=== PATIENT | female | born 1960 | race Caucasian/White ===

== ENCOUNTER 2020-05-05 08:47 | Day surgery (SDC) | payer MEDICARE, MEDICAID ==
[2020-05-03 14:43] LABS: BASOPHILS % (AUTO) 0.5 % (0-1); EOSINOPHILS # (AUTO) 0.2 X10'3 (0-0.9); EOSINOPHILS % (AUTO) 1.9 % (0-6); LYMPHOCYTES # (AUTO) 0.8 X10'3 (1.1-4.8); LYMPHOCYTES % (AUTO) 8.5 % (21-51); MEAN CORPUSCULAR HEMOGLOBIN 28.1 PG (27.0-31.0); MEAN CORPUSCULAR VOLUME 87.7 FL (78-98); MEAN PLATELET VOLUME 7.2 FL (7.4-10.4); MONOCYTES # (AUTO) 0.7 X10'3 (0-0.9); MONOCYTES % (AUTO) 7.1 % (2-12); NEUTROPHILS # (AUTO) 7.7 X10'3 (1.8-7.7); PRE OP HEMATOCRIT 33.5 % (35.0-45.0); PRE OP PLATELET COUNT 547 X10'3 (140-440); RED BLOOD COUNT 3.82 X10'6 (4.20-5.60); RED CELL DISTRIBUTION WIDTH 19.9 % (11.5-14.5)
[2020-05-03 14:49] LABS: PRE OP HEMOGLOBIN 10.7 g/dL (12.0-16.0)
[2020-05-03 14:54] LABS: CLARITY,URINE CLOUDY (Clear); COLOR,URINE YELLOW (Yellow); GLUCOSE, URINE NEGATIVE (Neg); KETONES,URINE NEGATIVE (Neg); LEUKOCYTE ESTERASE ,URINE SMALL (Neg); NITRITES, URINE NEGATIVE (Neg); OCCULT BLOOD,URINE TRACE-INTACT (Neg); PROTEIN,URINE TRACE mg/dl (Neg); UROBILINOGEN,URINE 0.2 E.U/dL (0.2-1.0)
[2020-05-03 14:57] LABS: PRE OP PROTIME 10.4 SECONDS (9.0-12.0)
[2020-05-03 15:01] LABS: ALBUMIN 2.6 G/DL (3.4-5.0); ALBUMIN/GLOBULIN RATIO 0.5 (1.1-1.5); ALKALINE PHOSPHATASE 154 IU/L (46-116); BLOOD UREA NITROGEN 18 MG/DL (7-18); BUN/CREATININE RATIO 16.4 (6.6-38.0); CALCIUM 8.5 MG/DL (8.5-10.1); CHLORIDE 104 MMOL/L (99-107); PRE OP ALT 10 U/L (30-65); PRE OP ANION GAP 7 (8-16); PRE OP AST 11 U/L (10-37); PRE OP BILIRUB, TOTAL 0.2 MG/DL (0.0-1.0); PRE OP GLUCOSE 95 MG/DL (70-104); PRE OP POTASSIUM 3.6 MMOL/L (3.4-5.1); PRE OP SODIUM 140 MMOL/L (135-145); TOTAL CARBON DIOXIDE 28.8 MMOL/L (24-32); TOTAL PROTEIN 7.5 G/DL (6.4-8.2); eGFR 51 ML/MIN
[2020-05-03 15:05] LABS: UA COLLECTION TYPE CLN CATCH MIDSTREAM
[2020-05-03 15:06] LABS: WBC,URINE 20-30 /HPF (0-4)
[2020-05-03 15:07] LABS: BACTERIA,URINE 1+ /HPF (Neg); SQUAMOUS EPITHELIAL CELL,UR FEW /LPF (FEW)
[2020-05-03 15:41] LABS: ANISOCYTOSIS 2+; PLATELET ESTIMATE INCREASED
[2020-05-03 15:42] LABS: HYPOCHROMASIA 1+
[~2020-05-05] VITALS: Ht 167.6 cm; Wt 63.5 kg
[2020-05-05] VITALS (12 sets, daily range): BP systolic 101–123; BP diastolic 52–69
[~2020-05-05 08:47] MED LIST: ALBU6.7H9 INH; AMIT25TA19 PO; AMLO5TAB16 PO; ATOM80CA PO; ATOR20TA66 PO; AZAT50TA18 PO; CARV-50 PO; CITA40TA22 PO; DOCUMENT DATE & TIME OF BETA-BLOCKER PO ONE; FAMO-128 PO; FLO0.1T PO; LEVO100T9 PO; LISI-600 PO; TRAZ-251 PO; USTE90DI SQ; VANCOMYCIN INJ 1000 MG in NORMAL SALINE 250ml IV.SOLN IV ONE; [UNRECOGNIZED DRUG - REMARK] PO; ceFAZolin 2gm in dextrose, iso 50 ML IV ONE; famotidine 20mg tablet PO ONE; ringers solution, lacted 1,000 ML IV SCH
[2020-05-05] MEDS ORDERED: bacitracin 15gm ointment TP ONE (08:54)
[2020-05-05] MEDS ORDERED: BUPIVAcaine/PF 2.5 mg/ml (0.25%) 30ml vial ONE (08:55)
[2020-05-05] MEDS ORDERED: sevoflurane 250ml liquid IH ONE (09:37)
[2020-05-05] MEDS ORDERED: midazolam 2 mg/2 ml injection ONE (09:44)
[2020-05-05] MEDS ORDERED: fentaNYL/PF 50MCG/1 ML 2ML syringe ONE (09:44)
[2020-05-05] MEDS ORDERED: albumin (Human) 5% 250ml 250 ML IV ONE ×3 (11:01→11:15)
[2020-05-05] MEDS ORDERED: phenylephrine 10mg/ml inj. ONE ×2 (11:09)
[2020-05-05] MEDS ORDERED: ePHEDrine 50MG/ML INJ. ONE (11:09)
--- NOTE | 2020-05-05 11:22 | NUR ---
RECEIVED FROM OR VIA [facility] ACCOMPANIED BY ANESTHESIOLOGIST DR JAMES, REPORT GIVEN. PT DROWSY BUT AWAKENS WITH NO COMPLAINT OF PAIN. 20 GAUGE PIV R FA PATENT AND RUNNING LR AT 100 ML/HR. R LE DRESSING AND SPLINT CDI. BRISK CAP REFILL, SKIN PINK AND WARM, VSS, ABD SOFT, EXTREMITY ELEVATED AND ICE APPLIED. PT RESTING COMFORTABLY.
--- NOTE | 2020-05-05 13:11 | NUR ---
PT AWAKE AND ALERT WITH NO COMPLAINT OF PAIN. 20 GAUGE PIV R FA DC/D CATH TIP INTACT. R LE DRESSING AND SPLINT CDI. BRISK CAP REFILL, SKIN PINK AND WARM, VSS, ABD SOFT. TOLERATING FLUIDS, ABLE TO DRESS SELF, AMBULATE WITH CRUTCHES, AND VOID. DISCHARGE INSTRUCTIONS GIVEN AND PT VERBALIZED UNDERSTANDING. TRANSPORTED VIA WHEELCHAIR TO SON IN PRIVATE VEHICLE TO HOME.
== END 2020-05-05 13:11 | disposition home or self-care (01) ==
LOC: PAS 08:47
PROVIDERS: ATTEND Podiatrist Foot & Ankle Surgery
DX: S92.311A Displaced fracture of first metatarsal bone, right foot, initial encounter for closed fracture (principal); F17.210 Nicotine dependence, cigarettes, uncomplicated; F41.9 Anxiety disorder, unspecified; F32.9 Major depressive disorder, single episode, unspecified; K21.9 Gastro-esophageal reflux disease without esophagitis; G89.18 Other acute postprocedural pain; M19.90 Unspecified osteoarthritis, unspecified site; Z88.8 Allergy status to other drugs, medicaments and biological substances; Z98.890 Other specified postprocedural states; Z72.89 Other problems related to lifestyle; Z93.3 Colostomy status; Z79.01 Long term (current) use of anticoagulants; Z86.73 Personal history of transient ischemic attack (TIA), and cerebral infarction without residual deficits; Z79.899 Other long term (current) drug therapy; Z95.0 Presence of cardiac pacemaker; X58.XXXA Exposure to other specified factors, initial encounter; Y93.89 Activity, other specified; Y92.89 Other specified places as the place of occurrence of the external cause; Y99.8 Other external cause status
CPT/HCPCS: 28485; 36415; 64445; 64447; 71046; 73620; 76000; 76942; 80053; 81001; 85025; 85610; 85730; 87077; 87088; 87186; 93005; A6223; C1713; J2250; J2370; J3010; J3370; J3490; J7120; P9045; 85008; A4215; A4618; A6253; A6449; A7000

== ENCOUNTER 2020-09-29 13:51 | Day surgery (SDC) | payer MEDICARE, MEDICAID ==
[2020-09-28 14:55] LABS: BASOPHILS # (AUTO) 0.1 X10'3 (0-0.2); BASOPHILS % (AUTO) 0.8 % (0-1); EOSINOPHILS # (AUTO) 0.2 X10'3 (0-0.9); EOSINOPHILS % (AUTO) 2.8 % (0-6); HEMATOCRIT 30.6 % (35.0-45.0); LYMPHOCYTES # (AUTO) 0.8 X10'3 (1.1-4.8); LYMPHOCYTES % (AUTO) 11.9 % (21-51); MEAN CORPUSCULAR HEMOGLOBIN 28.1 PG (27.0-31.0); MEAN CORPUSCULAR HGB CONC 32.8 g/dL (33.0-36.5); MEAN CORPUSCULAR VOLUME 85.5 FL (78-98); MEAN PLATELET VOLUME 7.1 FL (7.4-10.4); MONOCYTES # (AUTO) 0.6 X10'3 (0-0.9); MONOCYTES % (AUTO) 8.2 % (2-12); NEUTROPHILS # (AUTO) 5.4 X10'3 (1.8-7.7); NEUTROPHILS % (AUTO) 76.3 % (42-75); PLATELET COUNT 492 X10'3 (140-440); RED BLOOD COUNT 3.58 X10'6 (4.20-5.60); RED CELL DISTRIBUTION WIDTH 17.9 % (11.5-14.5)
[2020-09-28 15:02] LABS: ALBUMIN 2.5 G/DL (3.4-5.0); ANION GAP 3 (8-16); BLOOD UREA NITROGEN 21 MG/DL (7-18); BUN/CREATININE RATIO 17.5 (6.6-38.0); CALCIUM 7.9 MG/DL (8.5-10.1); CHLORIDE 105 MMOL/L (99-107); GLUCOSE 92 MG/DL (70-104); POTASSIUM 3.9 MMOL/L (3.5-5.1); SODIUM 140 MMOL/L (135-145); TOTAL CARBON DIOXIDE 31.9 MMOL/L (24-32); eGFR 46 ML/MIN
[2020-09-28 15:07] LABS: PARTIAL THROMBOPLASTIN TIME 24 SECONDS (22-32)
[2020-09-29] VITALS (9 sets, daily range): BP systolic 138–151; BP diastolic 72–84
[~2020-09-29] VITALS: Ht 167.6 cm; Wt 64.4 kg
[~2020-09-29 13:51] MED LIST changes: -DOCUMENT DATE & TIME OF BETA-BLOCKER PO ONE; -LISI-600 PO; +LISI20TA28 PO; -VANCOMYCIN INJ 1000 MG in NORMAL SALINE 250ml IV.SOLN IV ONE; -ceFAZolin 2gm in dextrose, iso 50 ML IV ONE; -famotidine 20mg tablet PO ONE; -ringers solution, lacted 1,000 ML IV SCH
[2020-09-29] MEDS ORDERED: OMEP-50 PO (14:43)
[2020-09-29] MEDS ORDERED: midazolam 2 mg/2 ml injection ONE ×2 (14:44→15:50)
[2020-09-29] MEDS ORDERED: LIDOcaine 1% W/epiNEPHrine 1:100,000 20ml vial ONE (14:44)
[2020-09-29] MEDS ORDERED: fentaNYL/PF 50MCG/1 ML 2ML syringe ONE ×2 (14:44→15:50)
[2020-09-29] MEDS ORDERED: ceFAZolin 1000mg inj ONE (14:44)
[2020-09-29] MEDS ORDERED: ALBU18HF2 INH (14:49)
[2020-09-29] MEDS ORDERED: ceFAZolin 2gm in dextrose, iso 50 ML IV ONE ×2 (15:04→15:05)
[2020-09-29] MEDS ORDERED: normal saline 1000ml 1,000 ML IV SCH (16:30)
[2020-09-29] MEDS ORDERED: HYDROcodone/acetaminophen 5mg/325mg tablet PO PRN (16:30)
[2020-09-29] MEDS ORDERED: HYDROcodone/acetaminophen 10/325mg tab PO PRN (16:30)
[2020-09-29] MEDS ORDERED: vancomycin/NS 1 GM ADD-VANTAGE 250 ML X 1 DOSE IV ONE (17:00)
== END 2020-09-29 19:20 | disposition home or self-care (01) ==
LOC: SSTAY O 13:51
PROVIDERS: ATTEND Internal Medicine Cardiovascular Disease
DX: Z45.02 Encounter for adjustment and management of automatic implantable cardiac defibrillator (principal); I25.10 Atherosclerotic heart disease of native coronary artery without angina pectoris; I42.9 Cardiomyopathy, unspecified; I50.9 Heart failure, unspecified; J44.9 Chronic obstructive pulmonary disease, unspecified; I47.1 Supraventricular tachycardia; Z72.0 Tobacco use
CPT/HCPCS: 33264; 36415; 80048; 85025; 85610; 85730; 93005; 99152; 99153; C1882; J0690; J2250; J3010; J3370; A4620; C2621

== ENCOUNTER 2021-12-07 11:43 | Day surgery (SDC) | payer MEDICARE, MEDICAID ==
[2021-11-29 14:52] LABS: BASOPHILS % (AUTO) 0.7 % (0-1); EOSINOPHILS # (AUTO) 0.1 X10'3 (0-0.9); EOSINOPHILS % (AUTO) 3.1 % (0-6); LYMPHOCYTES # (AUTO) 0.6 X10'3 (1.1-4.8); LYMPHOCYTES % (AUTO) 11.6 % (21-51); MEAN CORPUSCULAR HEMOGLOBIN 23.6 PG (27.0-31.0); MEAN CORPUSCULAR HGB CONC 31.5 g/dL (33.0-36.5); MEAN CORPUSCULAR VOLUME 75.1 FL (78-98); MEAN PLATELET VOLUME 7.7 FL (7.4-10.4); MONOCYTES # (AUTO) 0.4 X10'3 (0-0.9); MONOCYTES % (AUTO) 9.3 % (2-12); NEUTROPHILS # (AUTO) 3.6 X10'3 (1.8-7.7); NEUTROPHILS % (AUTO) 75.3 % (42-75); PRE OP HEMATOCRIT 28.2 % (35.0-45.0); PRE OP PLATELET COUNT 372 X10'3 (140-440); RED BLOOD COUNT 3.75 X10'6 (4.20-5.60); RED CELL DISTRIBUTION WIDTH 23.8 % (11.5-14.5)
[2021-11-29 14:56] LABS: PRE OP HEMOGLOBIN 8.9 g/dL (12.0-16.0)
[2021-11-29 15:19] LABS: ALBUMIN 2.7 G/DL (3.4-5.0); ALBUMIN/GLOBULIN RATIO 0.6 (1.1-1.5); ALKALINE PHOSPHATASE 72 IU/L (46-116); BLOOD UREA NITROGEN 18 MG/DL (7-18); BUN/CREATININE RATIO 15.7 (6.6-38.0); CALCIUM 8.4 MG/DL (8.5-10.1); CHLORIDE 103 MMOL/L (99-107); CREATININE 1.15 MG/DL (0.40-0.90); PRE OP ALT 11 U/L (30-65); PRE OP ANION GAP 11 (8-16); PRE OP AST 12 U/L (10-37); PRE OP BILIRUB, TOTAL 0.3 MG/DL (0.0-1.0); PRE OP GLUCOSE 125 MG/DL (70-104); PRE OP POTASSIUM 4.3 MMOL/L (3.4-5.1); PRE OP SODIUM 141 MMOL/L (135-145); TOTAL CARBON DIOXIDE 27.2 MMOL/L (24-32); TOTAL PROTEIN 7.5 G/DL (6.4-8.2); eGFR 48 ML/MIN
[2021-11-29 15:48] LABS: ANISOCYTOSIS 3+; MICROCYTOSIS 1+; PLATELET ESTIMATE NORMAL; POIKILOCYTOSIS FEW; POLYCHROMASIA FEW; TARGET CELLS FEW
[~2021-12-07] VITALS: Ht 167.6 cm; Wt 59.5 kg
[~2021-12-07 11:43] MED LIST changes: +ALBU18HF2 INH; -ALBU6.7H9 INH; -AMIT25TA19 PO; -ATOM80CA PO; +DOCUMENT DATE & TIME OF BETA-BLOCKER PO ONE; -FAMO-128 PO; +LEVE10006 PO; +LIPA1CAP18; +NALT50TA PO; +OMEP20CA16 PO; +cefazolin/dext.iso 2gm/50ml IV ONE; +famotidine 20mg tablet PO ONE; +ringers solution, lacted 1,000 ML IV SCH; +vancomycin/NS 1 GM in NS 250 ML IV ONE
[2021-12-07 12:00] VITALS: BP 128/73
[2021-12-07 12:49] LABS: ISTAT CREATININE 1.1 mg/dL (0.6-1.1); ISTAT HGB 9.9 g/dl (12.0-16.0); ISTAT IONIZED CALCIUM 1.21 mmol/L (1.03-1.32); ISTAT K 4.1 mmol/L (3.5-5.1); POC BUN/CREATININE RATIO 17.3 (6.6-38.0)
[2021-12-07] MEDS ORDERED: methylPREDNISolone sod succ 125mg/2ml vial ONE (14:57)
[2021-12-07] MEDS ORDERED: BUPIVAcaine 0.5% inj/PF 30 ML ONE (14:57)
[2021-12-07] MEDS ORDERED: hydrALAZINE 20mg/ml inj. IV ONE (16:15)
[2021-12-07] MEDS ORDERED: LIDOcaine 0.5% (5mg/ml) 50ml vial ONE (16:19)
[2021-12-07] MEDS ORDERED: FENTANYL CITRATE/PF 50 MCG/1 ML VIAL ONE ×2 (16:22→16:36)
[2021-12-07] MEDS ORDERED: midazolam 1 mg/ML 2ml injection ONE (16:33)
[2021-12-07] MEDS ORDERED: ketamine 50mg/5ml syringe ONE (16:45)
[2021-12-07] MEDS ORDERED: propofol inj 20 ML IV ONE (16:59)
[2021-12-07 17:06] VITALS: BP 156/84
--- NOTE | 2021-12-07 17:06 | NUR ---
Received from OR via [facility] IN STABLE CONDITION , accompanied by Anesthesiologist and EDUCATIONAL THERAPIST report given by EDUCATIONAL THERAPIST AND Anesthesiolgist. Addendum: 12/07/21 at 1755 by Mere Knight RN Amended: Links added.
[2021-12-07 17:20] VITALS: BP 140/76
[2021-12-07 17:30] VITALS: BP 151/78
--- NOTE | 2021-12-07 17:56 | NUR ---
PATIENT DISCHARGED FROM PACU IN STABLE CONDITION AFTER WRITTEN AND VERBAL DISCHARGE INSTRUCTIONS GIVEN. PATIENT GAVE VERBAL UNDERSTANDING OF INSTRUCTIONS. PATIENT LEFT FACILITY VIA WHEELCHAIR WITH RN. Addendum: 12/07/21 at 1815 by Mere Knight RN Amended: Links added.
== END 2021-12-07 17:56 | disposition home or self-care (01) ==
LOC: PAS 11:43
PROVIDERS: ATTEND Orthopaedic Surgery
DX: G56.02 Carpal tunnel syndrome, left upper limb (principal); G56.22 Lesion of ulnar nerve, left upper limb; I25.10 Atherosclerotic heart disease of native coronary artery without angina pectoris; I42.9 Cardiomyopathy, unspecified; I10 Essential (primary) hypertension; G40.909 Epilepsy, unspecified, not intractable, without status epilepticus; K21.9 Gastro-esophageal reflux disease without esophagitis; E78.5 Hyperlipidemia, unspecified; E03.9 Hypothyroidism, unspecified; F17.210 Nicotine dependence, cigarettes, uncomplicated; J44.9 Chronic obstructive pulmonary disease, unspecified; F90.9 Attention-deficit hyperactivity disorder, unspecified type; F41.9 Anxiety disorder, unspecified; F32.A Depression, unspecified; Z20.822 Contact with and (suspected) exposure to COVID-19; Z98.890 Other specified postprocedural states; Z95.0 Presence of cardiac pacemaker; Z86.73 Personal history of transient ischemic attack (TIA), and cerebral infarction without residual deficits; Z88.8 Allergy status to other drugs, medicaments and biological substances
CPT/HCPCS: 36415; 64719; 64721; 80047; 80053; 85025; 93005; C9803; J0360; J2250; J2704; J2930; J3010; J3370; J3490; J7030; J7120; S0020; U0003; U0005; Z7506; Z7512; 85008; A4565; A4615; A6455; A7000